=== PATIENT | female | born 1990 | race Caucasian/White ===

== ENCOUNTER → 2023-06-03 | Outpatient (REF) | LOC: M PLAIMG 11:15 | PROVIDERS: ATTEND Internal Medicine | DX: R52 Pain, unspecified (principal) ==

== ENCOUNTER → 2023-06-18 | Outpatient (REF) | payer OTHER ==
[2023-06-18 17:34] LABS: BASO % 0.5 % (0.0-1.0); EOS # 0.1 10^3/uL (0.0-0.5); EOS % 1.4 % (0.0-3.0); HEMOGLOBIN 15.1 g/dl (12.0-15.5); LYMPH # 2.8 10^3/uL (1.5-5.0); LYMPH % 38.3 % (24.0-44.0); MEAN CORPUSCULAR HEMOGLOBIN 29.4 pg (27.0-33.0); MEAN CORPUSCULAR HGB CONC 33.6 g/dl (32.0-36.5); MEAN CORPUSCULAR VOLUME 87.7 fl (80.0-96.0); MONO # 0.6 10^3/uL (0.0-0.8); MONO % 7.7 % (2.0-8.0); NEUTROPHILS # 3.8 10^3/uL (1.5-8.5); PLATELET COUNT, AUTOMATED 400 10^3/uL (150-450); RED BLOOD COUNT 5.13 10^6/uL (4.00-5.40); WHITE BLOOD COUNT 7.3 10^3/uL (4.0-10.0)
[2023-06-18 17:58] LABS: ALBUMIN 4.3 G/DL (3.2-5.2); ALKALINE PHOSPHATASE 59 U/L (46-116); ALT/SGPT 27 U/L (7.0-40); AST/SGOT 22 U/L (<34); BILIRUBIN,TOTAL 1.2 MG/DL (0.3-1.2); BLOOD UREA NITROGEN 6 MG/DL (9-23); CALCIUM LEVEL 8.5 MG/DL (8.5-10.1); CARBON DIOXIDE LEVEL 28 MMOL/L (20-31); CHLORIDE LEVEL 104 MMOL/L (98-107); CHOLESTEROL LEVEL 206 MG/DL (<200); CHOLESTEROL RISK RATIO 4.57 (<5); CREATININE FOR GFR 0.82 MG/DL (0.55-1.30); GLOMERULAR FILTRATION RATE > 60.0 (>60); GLUCOSE, FASTING 91 MG/DL (60-100); LDL CHOLESTEROL 127.6 MG/DL (<100); POTASSIUM SERUM 4.5 MMOL/L (3.5-5.1); SODIUM LEVEL 134 MMOL/L (136-145); TOTAL PROTEIN 7.3 G/DL (5.7-8.2); TRIGLYCERIDES LEVEL 167 MG/DL (<150)
[2023-06-18 18:00] LABS: THYROID STIMULATING HORMONE 2.223 uIU/ML (0.55-4.78)
[2023-06-18 18:01] LABS: TOTAL 25(OH) VITAMIN D 16.2 NG/ML (20.0-100.0)
[2023-06-18 18:13] LABS: HEMOGLOBIN A1c 5.5 % (4.0-6.0)
== END ==
LOC: M LAB REF 16:35
PROVIDERS: ATTEND Nurse Practitioner Family
DX: Z11.9 Encounter for screening for infectious and parasitic diseases, unspecified (principal); E66.3 Overweight; E55.9 Vitamin D deficiency, unspecified; R53.83 Other fatigue

== ENCOUNTER → 2023-07-14 | Outpatient (CLI) | payer OTHER ==
[2023-07-14 15:22] LABS: BASO # 0.1 10^3/uL (0.0-0.2); BASO % 0.7 % (0.0-1.0); EOS # 0.1 10^3/uL (0.0-0.5); EOS % 1.4 % (0.0-3.0); HEMATOCRIT 46.1 % (36.0-47.0); HEMOGLOBIN 15.3 g/dl (12.0-15.5); LYMPH # 2.8 10^3/uL (1.5-5.0); LYMPH % 35.1 % (24.0-44.0); MEAN CORPUSCULAR HEMOGLOBIN 29.8 pg (27.0-33.0); MEAN CORPUSCULAR HGB CONC 33.2 g/dl (32.0-36.5); MEAN CORPUSCULAR VOLUME 89.7 fl (80.0-96.0); MONO # 0.5 10^3/uL (0.0-0.8); MONO % 6.7 % (2.0-8.0); NEUTROPHILS # 4.5 10^3/uL (1.5-8.5); NEUTROPHILS % 55.7 % (36.0-66.0); PLATELET COUNT, AUTOMATED 381 10^3/uL (150-450); RED BLOOD COUNT 5.14 10^6/uL (4.00-5.40); WHITE BLOOD COUNT 8.1 10^3/uL (4.0-10.0)
[2023-07-14 15:43] LABS: C REACTIVE PROTEIN QUANTITATIV < 0.40 MG/DL (<1.0)
[2023-07-14 15:45] LABS: ALBUMIN 4.4 G/DL (3.2-5.2); ALKALINE PHOSPHATASE 59 U/L (46-116); ALT/SGPT 18 U/L (7.0-40); AST/SGOT 13 U/L (<34); BILIRUBIN,TOTAL 0.8 MG/DL (0.3-1.2); BLOOD UREA NITROGEN 6 MG/DL (9-23); CALCIUM LEVEL 9.2 MG/DL (8.5-10.1); CARBON DIOXIDE LEVEL 33 MMOL/L (20-31); CHLORIDE LEVEL 104 MMOL/L (98-107); ERYTHROCYTE SEDIMENTATION RATE 7 mm/hr (0-20); GLOMERULAR FILTRATION RATE > 60.0 (>60); GLUCOSE, FASTING 85 MG/DL (60-100); POTASSIUM SERUM 4.9 MMOL/L (3.5-5.1); SODIUM LEVEL 140 MMOL/L (136-145); TOTAL PROTEIN 7.2 G/DL (5.7-8.2)
[2023-07-14 15:47] LABS: RHEUMATOID FACTOR QUANT 6.8 IU/ML (<14)
== END ==
LOC: M PLALAB 12:04
PROVIDERS: ATTEND Physician Assistant
DX: R20.2 Paresthesia of skin (principal); M54.2 Cervicalgia

== ENCOUNTER → 2023-08-03 | Outpatient (CLI) | payer OTHER | LOC: M SOG 08:07 | PROVIDERS: ATTEND Physician Assistant | DX: M25.532 Pain in left wrist (principal); M25.531 Pain in right wrist ==

== ENCOUNTER → 2023-09-12 | Outpatient (CLI) | payer OTHER | LOC: M RAD 08:52 | PROVIDERS: ATTEND Physician Assistant | DX: M51.27 Other intervertebral disc displacement, lumbosacral region (principal) ==

== ENCOUNTER 2023-11-19 12:24 | Day surgery (SDC) | payer OTHER ==
[~2023-11-19] VITALS: Ht 162.6 cm; Wt 103.9 kg
[~2023-11-19 12:24] MED LIST: ACETAMINOPHEN 1000MG 100ML IV BAG As Ordered ONE; ALBU8.5H; FLUTISP; HYDR-3363 PO; LEXA5TAB13 PO; LIDOCAINE 2% 100MG/5ML SDV (FOR ANES.) As Ordered ONE; MIDAZOLAM INJ 2MG/2ML VIAL As Ordered ONE; PRAZ5CAP PO; TOPA50TA8 PO; VITA200016 PO; fentaNYL 100 MCG/2 ML INJECTION As Ordered ONE; propofoL 200 MG/20 ML VIAL As Ordered ONE
[2023-11-19] MEDS ORDERED: LR 1,000 ML IV SCH ×2 (12:55→13:45)
[2023-11-19] MEDS ORDERED: ONDANSETRON 4MG 2ML VIAL As Ordered ONE (13:39)
[2023-11-19] MEDS ORDERED: KETOROLAC 60MG 2ML VIAL As Ordered ONE (13:39)
[2023-11-19] MEDS ORDERED: oxyCODONE 5MG TAB PO PRN (13:45)
[2023-11-19] MEDS ORDERED: fentaNYL 100 MCG/2 ML INJECTION IV PRN (13:45)
[2023-11-19] MEDS ORDERED: ONDANSETRON 4MG 2ML VIAL IV PRN (13:45)
[2023-11-19] MEDS ORDERED: HYDROMORPHONE HCL 0.5 MG/ 0.5 ML SYRINGE IV PRN (13:45)
[2023-11-19 14:30] VITALS: BP 135/84; TEMP 97.2; O2SAT 98
== END 2023-11-19 14:55 | disposition home or self-care (01) ==
LOC: M SDC 12:24
PROVIDERS: ATTEND Orthopaedic Surgery Hand Surgery
DX: G56.01 Carpal tunnel syndrome, right upper limb (principal); K21.9 Gastro-esophageal reflux disease without esophagitis; F41.9 Anxiety disorder, unspecified; G43.909 Migraine, unspecified, not intractable, without status migrainosus; J45.909 Unspecified asthma, uncomplicated; Z79.51 Long term (current) use of inhaled steroids; Z79.899 Other long term (current) drug therapy; Z88.2 Allergy status to sulfonamides
CPT/HCPCS: 29848; 81025; J0131; J0665; J1100; J1885; J2250; J2405; J3010

== ENCOUNTER → 2023-12-01 | Outpatient (CLI) | payer OTHER ==
[~2023-12-01] MED LIST changes: -ACETAMINOPHEN 1000MG 100ML IV BAG As Ordered ONE; -LIDOCAINE 2% 100MG/5ML SDV (FOR ANES.) As Ordered ONE; -MIDAZOLAM INJ 2MG/2ML VIAL As Ordered ONE; -fentaNYL 100 MCG/2 ML INJECTION As Ordered ONE; -propofoL 200 MG/20 ML VIAL As Ordered ONE
[2023-12-01 12:52] LABS: BASO # 0.1 10^3/uL (0.0-0.2); BASO % 0.7 % (0.0-1.0); EOS # 0.1 10^3/uL (0.0-0.5); EOS % 0.9 % (0.0-3.0); HEMATOCRIT 45.1 % (36.0-47.0); HEMOGLOBIN 14.9 g/dl (12.0-15.5); LYMPH # 2.7 10^3/uL (1.5-5.0); LYMPH % 31.1 % (24.0-44.0); MEAN CORPUSCULAR HEMOGLOBIN 29.4 pg (27.0-33.0); MEAN CORPUSCULAR VOLUME 89.1 fl (80.0-96.0); MONO # 0.6 10^3/uL (0.0-0.8); MONO % 6.4 % (2.0-8.0); NEUTROPHILS # 5.2 10^3/uL (1.5-8.5); NEUTROPHILS % 60.1 % (36.0-66.0); PLATELET COUNT, AUTOMATED 353 10^3/uL (150-450); RED BLOOD COUNT 5.06 10^6/uL (4.00-5.40); WHITE BLOOD COUNT 8.7 10^3/uL (4.0-10.0)
[2023-12-01 13:06] LABS: ERYTHROCYTE SEDIMENTATION RATE 17 mm/hr (0-20)
[2023-12-01 13:48] LABS: ALBUMIN 3.8 G/DL (3.2-5.2); ALKALINE PHOSPHATASE 63 U/L (46-116); ALT/SGPT 16 U/L (7.0-40); AST/SGOT 14 U/L (<34); BLOOD UREA NITROGEN 6 MG/DL (9-23); CALCIUM LEVEL 8.9 MG/DL (8.5-10.1); CARBON DIOXIDE LEVEL 30 MMOL/L (20-31); CHLORIDE LEVEL 104 MMOL/L (98-107); CREATININE FOR GFR 0.84 MG/DL (0.55-1.30); GLOMERULAR FILTRATION RATE > 60.0 (>60); GLUCOSE, FASTING 114 MG/DL (60-100); POTASSIUM SERUM 4.5 MMOL/L (3.5-5.1); RHEUMATOID FACTOR QUANT 4.7 IU/ML (<14); SODIUM LEVEL 139 MMOL/L (136-145); THYROID STIMULATING HORMONE 2.586 uIU/ML (0.55-4.78)
[2023-12-01 13:52] LABS: TOTAL 25(OH) VITAMIN D 24.3 NG/ML (20.0-100.0)
[2023-12-02 15:22] LABS: ANA SCREEN, IFA NEGATIVE (NEGATIVE)
== END ==
LOC: M PLALAB 10:18
PROVIDERS: ATTEND Psychiatry & Neurology Neurology
DX: R51.9 Headache, unspecified (principal)

== ENCOUNTER → 2024-02-03 | Outpatient (CLI) | payer OTHER ==
[2024-02-03 16:53] LABS: PLATELET COUNT, AUTOMATED 342 10^3/uL (150-450)
[2024-02-03 17:11] LABS: INR 1.07; PARTIAL THROMBOPLASTIN TIME 29.1 SECONDS (24.8-34.2); PROTHROMBIN TIME 13.6 SECONDS (12.5-14.5)
[2024-02-03 17:45] LABS: HCG, SERUM QUALITATIVE NEGATIVE (NEGATIVE)
== END ==
LOC: M PLALAB 15:48
PROVIDERS: ATTEND Physical Medicine & Rehabilitation
DX: Z01.812 Encounter for preprocedural laboratory examination (principal)

== ENCOUNTER → 2024-02-03 | Outpatient (CLI) | payer OTHER | LOC: M CARPUL 14:53 | PROVIDERS: ATTEND Nurse Practitioner Family | DX: J45.40 Moderate persistent asthma, uncomplicated (principal) ==

== ENCOUNTER → 2024-02-03 | Outpatient (REF) | LOC: M PLAIMG 15:43 | PROVIDERS: ATTEND Internal Medicine | DX: M25.511 Pain in right shoulder (principal); M25.551 Pain in right hip; M25.552 Pain in left hip ==

== ENCOUNTER → 2024-07-04 | Outpatient (CLI) | payer OTHER | LOC: M RAD 14:12 | PROVIDERS: ATTEND Psychiatry & Neurology Neurology | DX: S09.8XXA Other specified injuries of head, initial encounter (principal) ==

== ENCOUNTER → 2024-07-15 | Outpatient (CLI) | payer OTHER | LOC: M EKG 08:43 | PROVIDERS: ATTEND Nurse Practitioner Family | DX: R00.0 Tachycardia, unspecified (principal) ==

== ENCOUNTER → 2024-07-26 | Outpatient (CLI) | payer OTHER | LOC: M RAD 12:28 | PROVIDERS: ATTEND Nurse Practitioner Family | DX: R22.9 Localized swelling, mass and lump, unspecified (principal) ==

== ENCOUNTER → 2024-08-17 | Outpatient (REF) | payer OTHER ==
[2024-08-17 13:28] LABS: BLOOD UREA NITROGEN < 5 MG/DL (9-23); CALCIUM LEVEL 9.1 MG/DL (8.5-10.1); CARBON DIOXIDE LEVEL 30 MMOL/L (20-31); CHLORIDE LEVEL 103 MMOL/L (98-107); CREATININE FOR GFR 0.83 MG/DL (0.55-1.30); GLOMERULAR FILTRATION RATE > 90.0 (>60); GLUCOSE, FASTING 100 MG/DL (60-100); MAGNESIUM LEVEL 1.8 MG/DL (1.8-2.4); POTASSIUM SERUM 4.5 MMOL/L (3.5-5.1); SODIUM LEVEL 140 MMOL/L (136-145); THYROID STIMULATING HORMONE 2.028 uIU/ML (0.55-4.78)
== END ==
LOC: M LAB REF 12:26
PROVIDERS: ATTEND Nurse Practitioner Family
DX: R94.31 Abnormal electrocardiogram [ECG] [EKG] (principal)

== ENCOUNTER → 2024-08-18 | Outpatient (CLI) | payer OTHER | LOC: M PLALAB 16:26 | PROVIDERS: ATTEND Allergy & Immunology Allergy | DX: T78.01XA Anaphylactic reaction due to peanuts, initial encounter (principal); Y93.9 Activity, unspecified; Y92.9 Unspecified place or not applicable ==

== ENCOUNTER 2024-11-16 09:58 | Emergency (ER) | payer OTHER ==
[~2024-11-16] VITALS: Ht 160 cm; Wt 108.9 kg
[2024-11-16] MEDS ORDERED: BISO5TAB14 (10:07)
[2024-11-16] MEDS: KETOROLAC 30 MG/ML 1 ML VIAL IV ONE (11:18)
[2024-11-16] MEDS: dexAMETHasone 4 MG/ML 1 ML VIAL IV ONE (11:18)
[2024-11-16] MEDS: diphenhydrAMINE 50 MG/ML VIAL IV ONE (11:19)
[2024-11-16] MEDS: NS (Normal Saline) 0.9% 1,000 ML IV ONE (11:19)
[2024-11-16 13:56] VITALS: BP 135/77; TEMP 96.9; O2SAT 96
== END 2024-11-16 14:04 | disposition home or self-care (01) ==
LOC: M ED 09:58
DX: G43.909 Migraine, unspecified, not intractable, without status migrainosus (principal); J45.909 Unspecified asthma, uncomplicated; Z88.2 Allergy status to sulfonamides; Z79.52 Long term (current) use of systemic steroids; Z79.899 Other long term (current) drug therapy
CPT/HCPCS: 96361; 96374; 96375; 99284; J1100; J1200; J1885; J2765

== ENCOUNTER → 2024-11-22 | Outpatient (CLI) | payer MEDICAID ==
[~2024-11-22] MED LIST changes: +BISO5TAB14
== END ==
LOC: M RAD 10:30
PROVIDERS: ATTEND Physician Assistant
DX: M25.572 Pain in left ankle and joints of left foot (principal); R93.6 Abnormal findings on diagnostic imaging of limbs

== ENCOUNTER → 2024-12-02 | Outpatient (CLI) | payer MEDICAID ==
[2024-12-02 17:52] LABS: BASO # 0.1 10^3/uL (0.0-0.2); BASO % 0.7 % (0.0-1.0); EOS # 0.1 10^3/uL (0.0-0.5); EOS % 1.1 % (0.0-3.0); LYMPH # 2.9 10^3/uL (1.5-5.0); LYMPH % 28.3 % (24.0-44.0); MONO # 0.9 10^3/uL (0.0-0.8); MONO % 8.7 % (2.0-8.0); NEUTROPHILS # 6.2 10^3/uL (1.5-8.5); NEUTROPHILS % 60.6 % (36.0-66.0); PLATELET COUNT, AUTOMATED 407 10^3/uL (150-450)
[2024-12-02 18:12] LABS: ERYTHROCYTE SEDIMENTATION RATE 19 mm/hr (0-20)
[2024-12-02 18:24] LABS: C REACTIVE PROTEIN QUANTITATIV < 0.50 MG/DL (<1.0); RHEUMATOID FACTOR QUANT 4.5 IU/ML (<14)
[2024-12-02 18:26] LABS: CALCIUM LEVEL 9.2 MG/DL (8.5-10.1); CARBON DIOXIDE LEVEL 29 MMOL/L (20-31); CHLORIDE LEVEL 102 MMOL/L (98-107); CREATININE FOR GFR 0.87 MG/DL (0.55-1.30); GLOMERULAR FILTRATION RATE 88.5 (>60); POTASSIUM SERUM 4.3 MMOL/L (3.5-5.1); SODIUM LEVEL 142 MMOL/L (136-145)
[2024-12-06 14:59] LABS: LYME TOTAL ANTIBODY CIA <= 0.90 Index (<=0.90)
== END ==
LOC: M PLALAB 15:52
PROVIDERS: ATTEND Student in an Organized Health Care Education/Training Program
DX: M25.562 Pain in left knee (principal); M76.52 Patellar tendinitis, left knee; M76.51 Patellar tendinitis, right knee

== ENCOUNTER → 2024-12-08 | Outpatient (REF) | payer MEDICAID ==
[2024-12-08 17:11] LABS: BASO # 0.0 10^3/uL (0.0-0.2); BASO % 0.5 % (0.0-1.0); EOS # 0.1 10^3/uL (0.0-0.5); EOS % 1.6 % (0.0-3.0); LYMPH # 1.9 10^3/uL (1.5-5.0); LYMPH % 31.1 % (24.0-44.0); MONO # 0.4 10^3/uL (0.0-0.8); MONO % 7.2 % (2.0-8.0); NEUTROPHILS # 3.6 10^3/uL (1.5-8.5); NEUTROPHILS % 59.1 % (36.0-66.0); PLATELET COUNT, AUTOMATED 403 10^3/uL (150-450)
[2024-12-08 17:14] LABS: HCG, SERUM QUALITATIVE NEGATIVE (NEGATIVE)
[2024-12-08 17:16] LABS: ALT/SGPT 29 U/L (7.0-40); AST/SGOT 28 U/L (<34); CALCIUM LEVEL 8.9 MG/DL (8.5-10.1); CARBON DIOXIDE LEVEL 29 MMOL/L (20-31); CHLORIDE LEVEL 102 MMOL/L (98-107); CREATININE FOR GFR 0.86 MG/DL (0.55-1.30); GLOMERULAR FILTRATION RATE 89.7 (>60); POTASSIUM SERUM 4.5 MMOL/L (3.5-5.1); SODIUM LEVEL 141 MMOL/L (136-145)
== END ==
LOC: M LAB REF 11:58
PROVIDERS: ATTEND Physician Assistant
DX: R35.89 Other polyuria (principal); R10.9 Unspecified abdominal pain

== ENCOUNTER → 2024-12-19 | Outpatient (REF) | payer MEDICAID | LOC: M LAB REF 10:02 | PROVIDERS: ATTEND Physician Assistant | DX: R10.9 Unspecified abdominal pain (principal) ==

== ENCOUNTER → 2025-01-11 | Outpatient (CLI) | payer MEDICAID ==
[2025-01-11 16:45] LABS: BASO # 0.0 10^3/uL (0.0-0.2); BASO % 0.5 % (0.0-1.0); EOS # 0.1 10^3/uL (0.0-0.5); EOS % 1.4 % (0.0-3.0); LYMPH # 2.6 10^3/uL (1.5-5.0); LYMPH % 29.4 % (24.0-44.0); MONO # 0.6 10^3/uL (0.0-0.8); MONO % 6.5 % (2.0-8.0); NEUTROPHILS # 5.4 10^3/uL (1.5-8.5); NEUTROPHILS % 61.7 % (36.0-66.0); PLATELET COUNT, AUTOMATED 348 10^3/uL (150-450)
[2025-01-11 17:12] LABS: INR 0.93
[2025-01-11 17:19] LABS: CALCIUM LEVEL 8.6 MG/DL (8.5-10.1); CARBON DIOXIDE LEVEL 30 MMOL/L (20-31); CHLORIDE LEVEL 103 MMOL/L (98-107); CREATININE FOR GFR 0.89 MG/DL (0.55-1.30); GLOMERULAR FILTRATION RATE 86.1 (>60); HCG, SERUM QUALITATIVE NEGATIVE (NEGATIVE); POTASSIUM SERUM 4.4 MMOL/L (3.5-5.1); SODIUM LEVEL 142 MMOL/L (136-145)
== END ==
LOC: M PLALAB 16:04
PROVIDERS: ATTEND Nurse Practitioner Family
DX: Z01.818 Encounter for other preprocedural examination (principal)

== ENCOUNTER → 2025-02-01 | Outpatient (CLI) | payer MEDICAID | LOC: M SOG 09:21 | PROVIDERS: ATTEND Orthopaedic Surgery | DX: M25.551 Pain in right hip (principal) ==

== ENCOUNTER 2025-02-09 08:38 | Outpatient (RCR) | payer MEDICAID | END 2025-02-10 | LOC: M PT 08:38 | PROVIDERS: ATTEND Physician Assistant | DX: M25.572 Pain in left ankle and joints of left foot (principal) ==

== ENCOUNTER 2025-03-07 16:00 | Outpatient (RCR) | payer MEDICAID | END 2025-03-12 | LOC: M PT 16:00 | PROVIDERS: ATTEND Physician Assistant | DX: M25.572 Pain in left ankle and joints of left foot (principal) ==

== ENCOUNTER 2025-03-11 21:01 | Emergency (ER) | payer MEDICAID ==
[~2025-03-11] VITALS: Ht 160 cm; Wt 112.1 kg
[2025-03-12] MEDS: CYCLOBENZAPRINE 5 MG TABLET PO ONE (01:30)
[2025-03-12] MEDS: NAPROXEN 250 MG TAB PO ONE (01:31)
[2025-03-12 01:40] VITALS: BP 123/79; TEMP 97.9; O2SAT 98
== END 2025-03-12 01:41 | disposition home or self-care (01) ==
LOC: M ED 21:02
DX: S50.312A Abrasion of left elbow, initial encounter (principal); S16.1XXA Strain of muscle, fascia and tendon at neck level, initial encounter; W01.198A Fall on same level from slipping, tripping and stumbling with subsequent striking against other object, initial encounter; E04.1 Nontoxic single thyroid nodule; Z88.2 Allergy status to sulfonamides; Z79.52 Long term (current) use of systemic steroids; Z79.899 Other long term (current) drug therapy; Y92.009 Unspecified place in unspecified non-institutional (private) residence as the place of occurrence of the external cause; Y93.89 Activity, other specified; Y99.9 Unspecified external cause status

== ENCOUNTER 2025-03-28 14:56 | Outpatient (RCR) | payer MEDICAID | END 2025-04-12 | LOC: M PT 14:56 | PROVIDERS: ATTEND Physician Assistant | DX: M25.572 Pain in left ankle and joints of left foot (principal) ==